=== PATIENT | female | born 1955 | race Caucasian/White ===

== ENCOUNTER 2023-05-26 13:56 | Outpatient (CLI) | payer OTHER ==
[~2023-05-26 13:56] MED LIST: ADVAIR HFA 115/12 GM IH; ALLEGRA60 M1 PO; AZITHROMYCIN250 MG PO; BENZONATATE100 MG PO; DEXAMETHAS0.5 MG/5 M PO; GILTUSS TR1 TAB.SR . PO; PROVENTIL0.5 ML/2.5 IH; SINGULAIR4 MG PO
== END 2023-05-26 14:00 | disposition home or self-care (01) ==
LOC: SONOGRAMA 13:56
PROVIDERS: ATTEND Pathology Anatomic Pathology & Clinical Pathology
DX: D34 Benign neoplasm of thyroid gland (principal); E04.9 Nontoxic goiter, unspecified

== ENCOUNTER 2024-12-03 08:59 | Emergency (ER) | payer OTHER ==
[~2024-12-03] VITALS: Ht 160 cm; Wt 68.0 kg
[2024-12-03] MEDS ORDERED: IPRATROPIUM/ALBUTEROL SULFATE 3 ML AMPUL.NEB IH ONE ×2 (10:15→10:42)
[2024-12-03] MEDS ORDERED: BENZONATATE 100 MG CAPSULE PO ONE (10:15)
[2024-12-03 10:42] LABS: ABG PH 7.466 (7.35-7.45); ABG PO2 97.5 mmHg (80-100); ABG pCO2 31.1 mmHg (35-45); BASE EXCESS -0.8 mmol/l; BICARBONATE 21.9 mmol/l (23-25); Tco2 22.9 mmol/l
[2024-12-03 11:08] LABS: HEMATOCRIT 42.3 % (36.0-45.00); HEMOGLOBIN 14.4 g/dL (12.0-15.00); MEAN CELL VOLUME 84.9 fL (80.00-100.00); MEAN CORPUSCULAR HEMOGLOBIN 28.8 pg (27.00-32.0); MEAN CORPUSCULAR HGB CONC 33.9 g/dl (32.0-36.0); PLATELET COUNT 239 K/uL (150-450); RED BLOOD COUNT 4.98 M/uL (4.00-6.00); RED CELL DISTRIBUTION WIDTH 14.3 % (11.5-14.5)
[2024-12-03 11:23] LABS: CALCIUM 8.9 mg/dL (8.5-10.1); CREATININE SERUM 0.7 mg/dL (0.55-1.02); GFR 82.72; POTASSIUM 4.02 mEq/L (3.5-5.1)
[2024-12-03] MEDS ORDERED: LEVOFLOXACIN500 MG PO (11:45)
[2024-12-03] MEDS ORDERED: ALBUTEROL1.25 MG/3 IH (11:45)
[2024-12-03] MEDS ORDERED: BENZONATATE200 M1 PO (11:45)
[2024-12-03] MEDS ORDERED: TUSSIN100 MG/51 PO (11:47)
[2024-12-03] MEDS ORDERED: SINGULAIR10 MG PO (11:47)
[2024-12-03 15:34] LABS: allen test SATISFACTORY; o2 21 %; puncture site RADIAL LEFT
== END 2024-12-03 13:23 | disposition home or self-care (01) ==
LOC: ER 09:02
PROVIDERS: General Practice
DX: R53.81 Other malaise (principal); J22 Unspecified acute lower respiratory infection; J45.909 Unspecified asthma, uncomplicated; Z20.822 Contact with and (suspected) exposure to COVID-19; I10 Essential (primary) hypertension; E11.9 Type 2 diabetes mellitus without complications; Z91.018 Allergy to other foods